=== PATIENT | female | born 1940 | race Caucasian/White ===

== ENCOUNTER 2020-06-07 17:24 | Emergency (ER) | payer MEDICARE, BC ==
[~2020-06-07] VITALS: Ht 152.4 cm; Wt 54.5 kg
[~2020-06-07 17:24] MED LIST: ACET-2615 PO; ASPI-1071 PO; ATOR10TA70 PO; BETA1TAB19 PO; CALC500T11 PO; CARV25TA2 PO; CHOL10002 PO; DOCU-20 PO; DONE-46 PO; LORA0.5T PO; MAGN400O6 PO; OMEG1CAP13 PO
[2020-06-07] MEDS ORDERED: LIDOcaine 1% 30ml preserv. free vial IJ ONE (19:55)
[2020-06-07 22:13] VITALS: BP 154/92
== END 2020-06-07 22:09 | disposition home or self-care (01) ==
LOC: ER 17:24
DX: S63.115A Dislocation of metacarpophalangeal joint of left thumb, initial encounter (principal); S00.511A Abrasion of lip, initial encounter; I10 Essential (primary) hypertension; F03.90 Unspecified dementia, unspecified severity, without behavioral disturbance, psychotic disturbance, mood disturbance, and anxiety; Z79.82 Long term (current) use of aspirin; Z87.448 Personal history of other diseases of urinary system; W18.39XA Other fall on same level, initial encounter; Y93.89 Activity, other specified; Y92.89 Other specified places as the place of occurrence of the external cause; Y99.8 Other external cause status
CPT/HCPCS: 11401; 26700; 73130; 99284

== ENCOUNTER 2020-11-18 10:33 | Emergency (ER) | payer MEDICARE, BC ==
[~2020-11-18] VITALS: Ht 157.5 cm; Wt 50.0 kg
[~2020-11-18 10:33] MED LIST changes: +ALEN70TA80 PO; +AMLO5TAB16 PO; +CALC250T2 PO; -CARV25TA2 PO; +CARV6.253 PO; -DOCU-20 PO; +DOCU-348 PO; -DONE-46 PO; +LAMO25TA5 PO; -LORA0.5T PO
[2020-11-18] MEDS ORDERED: LIDOcaine 1% W/epiNEPHrine 1:200,000 10ml vial IJ ONE (11:00)
[2020-11-18 11:39] VITALS: BP 133/78
--- NOTE | 2020-11-18 11:39 | NUR ---
pt back from [place]
== END 2020-11-18 12:58 | disposition home or self-care (01) ==
LOC: ER 10:34
DX: S01.01XA Laceration without foreign body of scalp, initial encounter (principal); I10 Essential (primary) hypertension; Z86.69 Personal history of other diseases of the nervous system and sense organs; Z72.89 Other problems related to lifestyle; Z79.82 Long term (current) use of aspirin; Z79.899 Other long term (current) drug therapy; W01.0XXA Fall on same level from slipping, tripping and stumbling without subsequent striking against object, initial encounter; Y93.89 Activity, other specified; Y92.89 Other specified places as the place of occurrence of the external cause; Y99.8 Other external cause status
CPT/HCPCS: 12001; 70450; 72125; 99285

== ENCOUNTER 2021-05-06 09:47 | Emergency (ER) | payer MEDICARE, BC ==
[~2021-05-06] VITALS: Ht 157.5 cm; Wt 59.1 kg
[2021-05-06 10:57] LABS: BASOPHILS % (AUTO) 0.5 % (0-1); EOSINOPHILS # (AUTO) 0.1 X10'3 (0-0.9); EOSINOPHILS % (AUTO) 0.8 % (0-6); HEMOGLOBIN 12.8 g/dl (12.0-16.0); LYMPHOCYTES # (AUTO) 1.3 X10'3 (1.1-4.8); LYMPHOCYTES % (AUTO) 18.1 % (21-51); MEAN CORPUSCULAR HEMOGLOBIN 32.2 PG (27.0-31.0); MEAN CORPUSCULAR HGB CONC 33.6 g/dL (33.0-36.5); MEAN PLATELET VOLUME 7.4 FL (7.4-10.4); MONOCYTES # (AUTO) 0.5 X10'3 (0-0.9); MONOCYTES % (AUTO) 7.5 % (2-12); NEUTROPHILS # (AUTO) 5.2 X10'3 (1.8-7.7); NEUTROPHILS % (AUTO) 73.1 % (42-75); PLATELET COUNT 255 X10'3 (140-440); RED BLOOD COUNT 3.96 X10'6 (4.20-5.60); RED CELL DISTRIBUTION WIDTH 12.8 % (11.5-14.5); WHITE BLOOD COUNT 7.1 X10'3 (4.5-11.0)
[2021-05-06 11:07] LABS: ALANINE AMINOTRANSFERASE 20 U/L (12-78); ALBUMIN 3.3 G/DL (3.4-5.0); ALBUMIN/GLOBULIN RATIO 0.8 (1.1-1.5); ALKALINE PHOSPHATASE 74 IU/L (46-116); ANION GAP 7 (8-16); ASPARTATE AMINO TRANSFERASE 22 U/L (10-37); BILIRUBIN,TOTAL 0.4 MG/DL (0.1-1.0); BLOOD UREA NITROGEN 24 MG/DL (7-18); BUN/CREATININE RATIO 20.9 (6.6-38.0); CALCIUM 8.9 MG/DL (8.5-10.1); CHLORIDE 108 MMOL/L (99-107); CREATININE 1.15 MG/DL (0.40-0.90); GLUCOSE 121 MG/DL (70-104); POTASSIUM 4.3 MMOL/L (3.5-5.1); SODIUM 141 MMOL/L (135-145); TOTAL CARBON DIOXIDE 26.1 MMOL/L (24-32); TOTAL PROTEIN 7.3 G/DL (6.4-8.2); eGFR 45 ML/MIN
--- NOTE | 2021-05-06 14:13 | NUR ---
Pt. reports she has been falling often because "I am hurrying around too much"
[2021-05-06 15:58] LABS: ETHANOL < 0.010 GM/DL (0.0-0.010)
[2021-05-06 15:59] LABS: CLARITY,URINE CLEAR (Clear); COLOR,URINE Yellow (Yellow); GLUCOSE, URINE Negative (Neg); KETONES,URINE 40 mg/dl (Neg); OCCULT BLOOD,URINE NEGATIVE (Neg); PROTEIN,URINE Negative (Neg); UA COLLECTION TYPE STRAIGHT CATH; URINE AMPHETAMINE SCREEN NEGATIVE (Neg); URINE BARBITUATE SCREEN NEGATIVE (Neg); URINE BENZODIAZEPINES SCREEN NEGATIVE (Neg); URINE CANNABINOID SCREEN NEGATIVE (Neg); URINE COCAINE SCREEN NEGATIVE (Neg); URINE METHADONE SCREEN NEGATIVE (Neg); URINE OPIATE SCREEN NEGATIVE (Neg); URINE PHENCYCLIDINE SCREEN NEGATIVE (Neg)
[2021-05-06 16:00] LABS: LEUKOCYTE ESTERASE ,URINE NEGATIVE (Neg); NITRITES, URINE NEGATIVE (Neg); UROBILINOGEN,URINE 0.2 E.U/dL (0.2-1.0)
[2021-05-06 17:23] VITALS: BP 173/96
== END 2021-05-06 17:20 | disposition home or self-care (01) ==
LOC: ER 09:48
DX: R41.82 Altered mental status, unspecified (principal); K59.00 Constipation, unspecified; I12.9 Hypertensive chronic kidney disease with stage 1 through stage 4 chronic kidney disease, or unspecified chronic kidney disease; N18.9 Chronic kidney disease, unspecified; F03.90 Unspecified dementia, unspecified severity, without behavioral disturbance, psychotic disturbance, mood disturbance, and anxiety; G40.909 Epilepsy, unspecified, not intractable, without status epilepticus; I10 Essential (primary) hypertension; Z72.89 Other problems related to lifestyle; Z79.899 Other long term (current) drug therapy
CPT/HCPCS: 36415; 70450; 71045; 80053; 80305; 80320; 81003; 85025; 93005; 99285

== ENCOUNTER 2022-12-30 06:44 | Emergency (ER) | payer MEDICARE, BC ==
[~2022-12-30] VITALS: Ht 162.6 cm; Wt 54.5 kg
[~2022-12-30 06:44] MED LIST changes: +OMEG-5 PO; -OMEG1CAP13 PO
--- NOTE | 2022-12-30 07:19 | NUR ---
wound cleaned and MD aware pt is ready for eval of wound - small abrasion noted to back of head. no active bleeding.
[2022-12-30] MEDS ORDERED: LIDOcaine 1% W/epiNEPHrine 1:100,000 20ml vial SQ ONE (07:20)
--- NOTE | 2022-12-30 07:24 | NUR ---
provider removed c collar, pt has good ROM, denies pain, no obvious deformities noted, no step offs.
--- NOTE | 2022-12-30 07:31 | NUR ---
daughter stopped by - she is willing and able to transport pt back to her facility as soon as she is d\c ready. verified her number in the chart. she would like to be called on her cell phone.
[2022-12-30 11:45] VITALS: BP 197/106
== END 2022-12-30 12:17 | disposition home or self-care (01) ==
LOC: ER 06:45
DX: S01.01XA Laceration without foreign body of scalp, initial encounter (principal); W18.39XA Other fall on same level, initial encounter; I10 Essential (primary) hypertension; Z79.899 Other long term (current) drug therapy; Z79.1 Long term (current) use of non-steroidal anti-inflammatories (NSAID); Z79.2 Long term (current) use of antibiotics; Y93.89 Activity, other specified; Y92.89 Other specified places as the place of occurrence of the external cause; Y99.8 Other external cause status
CPT/HCPCS: 12001; 70450; 99284; A6449